=== PATIENT | male | born 1985 | race Caucasian/White ===

== ENCOUNTER → 2017-08-10 17:39 | Emergency (ER) | payer SELFPAY ==
[~2017-08-10] VITALS: Ht 182.9 cm; Wt 97.4 kg
[~2017-08-10 17:39] MED LIST: NOHOMEMEDS
[2017-08-10 18:03] VITALS: BP 139/100
== END | disposition left against medical advice (07) ==
LOC: EME 17:39
DX: S01.91XA Laceration without foreign body of unspecified part of head, initial encounter (principal); Z53.21 Procedure and treatment not carried out due to patient leaving prior to being seen by health care provider

== ENCOUNTER 2017-08-11 06:38 | Emergency (ER) | payer OTHER ==
[~2017-08-11] VITALS: Ht 182.9 cm; Wt 97.5 kg
[2017-08-11 08:28] VITALS: BP 118/72
== END 2017-08-11 08:29 | disposition home or self-care (01) ==
LOC: EME 06:38
PROC: 3E0234Z Introduction of Serum, Toxoid and Vaccine into Muscle, Percutaneous Approach (ICD-10-PCS; principal; 2017-08-11)
DX: S01.01XA Laceration without foreign body of scalp, initial encounter (principal); Z23 Encounter for immunization; W22.8XXA Striking against or struck by other objects, initial encounter
CPT/HCPCS: 70450; 99281; 99284